=== PATIENT | male | born 1985 | race Caucasian/White ===

== ENCOUNTER 2022-05-17 15:18 | Outpatient (CLI) | payer MEDICAID, SELFPAY | END 2022-05-17 15:19 | disposition home or self-care (01) | LOC: AMB 05-18 02:06 | PROVIDERS: Visit Provider Emergency Medicine | DX: R56.9 Unspecified convulsions (principal); R11.10 Vomiting, unspecified | CPT/HCPCS: A0425; A0427 ==

== ENCOUNTER 2022-05-17 15:45 | Emergency (ER) | payer MEDICAID, SELFPAY ==
[2022-05-17] VITALS (8 sets, daily range): BP systolic 124–132; BP diastolic 65–87; PULSE 85–106; RESP 20; TEMP 36.9; O2SAT 94–97; BMI 28.5
[2022-05-17 16:34] LABS: Basophils Absolute Auto 0.03 K/uL (0.00-0.30); Basophils Percent Auto 0.4 % (0.0-3.0); Eosinophils Absolute Auto 0.25 K/uL (0.00-0.50); Hematocrit 43.8 % (37.0-53.0); Hemoglobin* 14.9 gm/dL (13.5-17.5); Immature Granulocytes Abs Auto 0.03 K/uL (0.00-0.30); Immature Granulocytes Pct Auto 0.4 %; Lymphocytes Percent Auto 20.5 % (20-44); Mean Corpuscular HGB Conc 34 gm/dL (32-36); Mean Corpuscular Hemoglobin 30 pg (26-34); Mean Corpuscular Volume 89 fL (80-100); Monocytes Percent Auto 8.1 % (0.0-11.0); Neutrophils Absolute Auto 5.63 K/uL (1.7-7.0); Neutrophils Percent Auto 67.6 % (42.0-72.0); Platelet Count* 249 K/uL (140-440); RDW Coefficient of Variation % 12.3 % (11.5-15.5); White Blood Count* 8.31 K/uL (4.50-11.00)
[2022-05-17 16:46] LABS: Chloride* 104 mmol/L (96-114)
[2022-05-17 16:47] LABS: Albumin* 4.5 g/dL (3.3-5.0); Sodium* 138 mmol/L (135-149)
[2022-05-17 16:48] LABS: Potassium* 4.3 mmol/L (3.6-5.1)
[2022-05-17 16:50] LABS: Est. Creatinine Clearance* 111.01; Estimated Glomerular Filt Rate 99 ml/min
[2022-05-17 16:51] LABS: Alanine Aminotransferase* 70 U/L (4-50); Alkaline Phosphatase* 74 U/L (40-150); Aspartate Amino Transferase* 48 U/L (12-35); Bilirubin Direct* 0.3 mg/dL (0.0-0.5); Bilirubin Total* 0.4 mg/dL (0.1-1.5); Blood Urea Nitrogen* 15 mg/dL (5-24); Calcium* 8.8 mg/dL (8.4-10.6); Carbon Dioxide* 23 mmol/L (20-32); Glucose* 85 mg/dL (60-115); Total Protein* 7.7 g/dL (6.0-8.3)
[2022-05-17 17:00] LABS: C Reactive Protein* < 0.5 mg/dL (0.5-1.0); Slide Review Reflex No
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
== END 2022-05-17 17:24 | disposition home or self-care (01) ==
PROVIDERS: Emergency Provider Emergency Medicine
DX: G40.901 Epilepsy, unspecified, not intractable, with status epilepticus (principal)
CPT/HCPCS: 36415; 80048; 80076; 80177; 85025; 86140; 99284